=== PATIENT | male | born 1960 | race Caucasian/White ===

== ENCOUNTER 2019-04-19 21:06 | Observation (INO) | payer OTHER ==
[~2019-04-19] VITALS: Ht 177.8 cm; Wt 99.8 kg
[2019-04-19 22:35] LABS: BASOPHILS ABSOLUTE AUTO 0.02 K/mm3 (0.00-0.23); BASOPHILS PERCENT AUTO 0 % (0-2); EOSINOPHILS ABSOLUTE AUTO 0.04 K/mm3 (0.00-0.68); EOSINOPHILS PERCENT AUTO 0 % (0-6); Hematocrit 41.2 % (37.0-53.0); Hemoglobin 14.3 g/dL (13.5-17.5); IMMATURE GRAN ABSOLUTE AUTO 0.03 K/mm3 (0.00-0.10); IMMATURE GRAN PERCENT AUTO 0 % (0-1); LYMPHOCYTES ABSOLUTE AUTO 1.86 K/mm3 (0.84-5.20); LYMPHOCYTES PERCENT AUTO 20 % (21-46); MONOCYTES ABSOLUTE AUTO 0.83 K/mm3 (0.16-1.47); MONOCYTES PERCENT AUTO 9 % (4-13); Mean Corpuscular HGB 31.9 pg (26.0-34.0); Mean Corpuscular HGB Conc 34.7 g/dL (31.5-36.5); Mean Corpuscular Volume 92 fL (80-100); NEUTROPHILS ABSOLUTE AUTO 6.33 K/mm3 (1.96-9.15); NEUTROPHILS PERCENT AUTO 70 % (41-73); Platelet Count 207 K/mm3 (150-400); RDW Coefficient Variation 12.1 % (11.7-14.2); Red Blood Cell Count 4.48 M/mm3 (4.30-5.90); White Blood Cell Count 9.11 K/mm3 (4.00-11.30)
[2019-04-19 22:37] LABS: Source, Urine Voided
[2019-04-19 22:45] LABS: Bilirubin, Urine Neg (Neg); Blood, Urine Neg (Neg); Glucose Qualitative, Urine Neg (Neg); Ketones, Urine Neg (Neg); Leukocyte Esterase, Urine 1+ (Neg); Nitrite, Urine Neg (Neg); Protein, Urine Neg (Neg); Specific Gravity, Urine 1.015 (1.003-1.022); Urobilinogen, Urine 2+ (Normal); pH, Urine 6.5 (5.0-8.0)
[2019-04-19 22:55] LABS: Appearance, Urine Clear (Clear); Color, Urine Yellow (P-Yellow)
[2019-04-19 22:56] LABS: Bacteria Rare /hpf; Mucus Light (0-Heavy); Red Blood Cells, Urine 0-2 /hpf (0-2); Squamous Epithelial Cells Not Seen /hpf (Few)
[2019-04-19 22:59] LABS: Alanine Aminotransfer (ALT/SGP 49 U/L (12-78); Albumin, Blood 3.9 g/dL (3.4-5.0); Albumin/Globulin Ratio 1.1 (0.8-1.8); Alk Phos 83 U/L (50-136); Anion Gap 11 mmol/L (6-16); Aspartate Aminotrans (AST/SGOT 47 U/L (12-37); Bilirubin, Total 0.4 mg/dL (0.1-1.0); Blood Urea Nitrogen 22 mg/dL (8-24); Bun/Creatinine Ratio 27.3 (12.0-20.0); CO2, Blood 21 mmol/L (21-32); Calcium, Blood 8.7 mg/dL (8.5-10.1); Chloride, Blood 109 mmol/L (98-108); Creatinine, Blood 0.81 mg/dL (0.60-1.20); Globulin, Blood 3.7 g/dL (2.2-4.0); Glomerular Filtration Rate >60 (60-); Glucose, Blood 139 mg/dL (70-99); Potassium, Blood 3.7 mmol/L (3.5-5.5); Salicylate 4.6 mg/dL (2.8-20.0); Sodium, Blood 141 mmol/L (136-145); Total Protein, Blood 7.6 g/dL (6.4-8.2)
[2019-04-19 23:01] LABS: Ethanol (Alcohol), Blood, Med <3 mg/dL
[2019-04-19 23:02] LABS: Acetaminophen, Random <2.0 ug/mL (10.0-30.0)
[2019-04-19 23:08] LABS: U Amphetamine Screen Not Detected; U Barbituate Screen Not Detected; U Benzodiazapine Screen Not Detected; U Buprenorphine Screen Not Detected; U Cannabinoids Screen DETECTED; U Cocaine Screen Not Detected; U Methadone Screen Not Detected; U Methamphetamine Screen Not Detected; U Opiates Screen Not Detected; U Oxycodone Screen Not Detected; U Phencyclidine Screen Not Detected; U Propoxyphene Screen Not Detected
[2019-04-20] MEDS ORDERED: DICL25ER PO (14:21)
[2019-04-24] MEDS ORDERED: Flomax0.4 MG PO (19:09)
[2019-04-24] MEDS ORDERED: LEVSOD125 PO (19:09)
[2019-04-24] MEDS ORDERED: Seroquel Xr50 MG PO (19:10)
[2019-04-24] MEDS ORDERED: Aspir 8181 MG PO (19:10)
[2019-04-24] MEDS ORDERED: GABA400 PO (19:10)
[2019-04-24] MEDS ORDERED: QUETIAPINE FUM400 MG PO (19:11)
== END 2019-04-23 12:45 | disposition home or self-care (01) ==
LOC: ER 21:06 → EOR 21:07
PROVIDERS: ADMIT Emergency Medicine
DX: F25.1 Schizoaffective disorder, depressive type (principal); G24.01 Drug induced subacute dyskinesia; T43.505D Adverse effect of unspecified antipsychotics and neuroleptics, subsequent encounter; F12.10 Cannabis abuse, uncomplicated; E03.9 Hypothyroidism, unspecified; N40.0 Benign prostatic hyperplasia without lower urinary tract symptoms; Z79.899 Other long term (current) drug therapy; Z87.891 Personal history of nicotine dependence
CPT/HCPCS: 80053; 81001; 85025; 87086; 96372; 99285-25; G0378; G0480; J1200; J1630; J2060

== ENCOUNTER 2019-04-24 14:44 | Observation (INO) | payer OTHER ==
[~2019-04-24] VITALS: Ht 177.8 cm; Wt 99.8 kg
[~2019-04-24 14:44] MED LIST: DICL25ER PO
[2019-04-24 16:48] LABS: U Amphetamine Screen Not Detected; U Barbituate Screen Not Detected; U Benzodiazapine Screen Not Detected; U Buprenorphine Screen Not Detected; U Cannabinoids Screen DETECTED; U Cocaine Screen Not Detected; U Methadone Screen Not Detected; U Methamphetamine Screen Not Detected; U Opiates Screen Not Detected; U Oxycodone Screen Not Detected; U Phencyclidine Screen Not Detected; U Propoxyphene Screen Not Detected
[2019-04-24] MEDS ORDERED: LEVSOD125 PO (19:09)
[2019-04-24] MEDS ORDERED: Flomax0.4 MG PO (19:09)
[2019-04-24] MEDS ORDERED: Aspir 8181 MG PO (19:10)
[2019-04-24] MEDS ORDERED: Seroquel Xr50 MG PO (19:10)
[2019-04-24] MEDS ORDERED: GABA400 PO (19:10)
[2019-04-24] MEDS ORDERED: QUETIAPINE FUM400 MG PO (19:11)
== END 2019-04-25 09:10 ==
LOC: ER 14:44 → EOR 14:45
PROVIDERS: ADMIT Emergency Medicine
DX: F29 Unspecified psychosis not due to a substance or known physiological condition (principal); F20.0 Paranoid schizophrenia; F31.9 Bipolar disorder, unspecified; F41.9 Anxiety disorder, unspecified; F12.10 Cannabis abuse, uncomplicated; F17.200 Nicotine dependence, unspecified, uncomplicated; Z79.82 Long term (current) use of aspirin; Z79.1 Long term (current) use of non-steroidal anti-inflammatories (NSAID); Z79.899 Other long term (current) drug therapy; Z59.0 Homelessness
CPT/HCPCS: 36415; 99285; G0378; G0480; Q3014